=== PATIENT | male | born 1940 | race Caucasian/White ===

== ENCOUNTER 2017-07-04 00:43 | Inpatient (IN) | payer MEDICARE, BC ==
[~2017-07-04] VITALS: Ht 193 cm; Wt 72.6 kg
[2017-07-04] MEDS ORDERED: DOCU-141 PO (00:56)
--- NOTE | 2017-07-04 00:58 | NUR ---
MEDICALLY CLEARED BY DR CRUM
[2017-07-04] MEDS ORDERED: MULT-1119 PO (01:00)
[2017-07-04] MEDS ORDERED: ASPI-605 PO (01:00)
[2017-07-04] MEDS ORDERED: BUPR150T5 PO (01:00)
[2017-07-04] MEDS ORDERED: DONE10TA11 PO (01:00)
[2017-07-04] MEDS ORDERED: UBID200C32 PO (01:00)
--- NOTE | 2017-07-04 01:12 | NUR ---
TRANSFERED TO [facility] [place] VIA [facility]
--- NOTE | 2017-07-04 01:54 | NUR ---
GPS: PATIENT UNABLE TO SLEEP.RESTORIL 7.5 MG PO GIVEN.
--- NOTE | 2017-07-04 02:00 | NUR ---
RECEIVED TO CARE, ON A 72 HOUR HOLD FOR [facility]VELY DISABLED FROM , IN [place]. ACCORDIN REVAO THE CHART, HE WAS ADMITTED THERE FROM HOME, JAVIR EDER HAD BEEN NON COMPLIANT WITH FAMILY AND CAREGIVERS. AT THE HOSPITAL, HE WAS ATTEMPTING TO [place], AND REFUSING MEDICAL TREATMENT. UPON ARRIVAL, HE WAS CONFUSED AND DISORGANIZED. UNSTEADY GAIT. UNABLE TO PROVIDE HISTORY DUE TO CONFUSION. PRN RESTORIL WAS GIVEN AT 0153. OF 0200, HE REMAINS UP IN [employer] CHAIR, ATTEMPTING TO GET UP WITHOUT ASSISTANCE. ASSISTED NEEDED. WILL CONTINUE TO MONITOR CLOSELY.
--- NOTE | 2017-07-04 02:35 | NUR ---
GPS: PATIENT VERY AGITATED.GETTING OUT OF BED. STATED I WANT GO HOME. ATIVAN 0.5 MG PO GIVEN FOR AGITATION.
--- NOTE | 2017-07-04 02:40 | NUR ---
GPS: PATIENT C/O GEN: PAIN. TYLENOL 650 MG PO GIVEN.
--- NOTE | 2017-07-04 02:54 | NUR ---
GPS: RESTORIL 7.5 MG FOR SLEEP NOT EFFECTIVE.
--- NOTE | 2017-07-04 03:35 | NUR ---
GPS: PATIENT IS CALM NOW. PRN FOR AGITATION EFFECTIVE.
--- NOTE | 2017-07-04 03:40 | NUR ---
GPS: PATIENT STATED I AM FEELING BETTER NOW. PRN EFFECTIVE FOR PAIN.
--- NOTE | 2017-07-04 06:25 | NUR ---
GPS: REMAIN CALM AFTER ATIVAN PO GIVEN. KEPT IN GIOVANY CHAIR NEAR NURSING STATION FOR SAFETY.SLEPT 45 MINUTE ONLY.RESTORIL 7.5 MG PO GIVEN NOT EFFECTIVE.ASSISTED WITH ADL'S.CONTINUE PLAN OF CARE.
[2017-07-04 07:30] VITALS: BP 127/77
--- NOTE | 2017-07-04 12:45 | NUR ---
Initial discharge instructions: Pt resides at home with his family [[id number] [place] [address];[phone] (cell)].Pt was unresponsive when asked about discharge plans.SW attempted to contact Cici (Daughter) and Tristen () but no answer at this time. SW will speak with pt,family,and MD regarding appropriate discharge plans.SW will form a safe and proper discharge.
[2017-07-04 16:00] VITALS: BP 127/89
--- NOTE | 2017-07-04 20:00 | NUR ---
nsg: pt has a fever of 101.3F, family with patient. they want patient to be transferred to [facility] ER. notified Dr. Khan, see md order. notified md regarding ama option. per Dr. Khan to call psychiatrist since pt is on 72hr hold.
--- NOTE | 2017-07-04 20:15 | NUR ---
nsg: family refused all stat labs and cxr.
--- NOTE | 2017-07-04 20:33 | NUR ---
nsg: spoke with Dr. Maurice regarding pt family wants to go [facility]a. received order for d/c 72hr hold. belongings with daughter and .
--- NOTE | 2017-07-04 21:00 | NUR ---
NSG: PT LEFT AMA WITH FAMILY. SEE MD ORDER. DR. BUSTOS, DR. AMBRIZ, DR. FORMAN, AND [employer] VIEWER AWARE OF AMA.
== END 2017-07-04 21:00 | disposition left against medical advice (07) | DRG 885 ==
LOC: ER 00:50 → GPS 01:02
PROVIDERS: ADMIT Psychiatry & Neurology Psychosomatic Medicine; ATTEND Internal Medicine
DX: F29 Unspecified psychosis not due to a substance or known physiological condition (principal); F02.81 Dementia in other diseases classified elsewhere, unspecified severity, with behavioral disturbance; G30.9 Alzheimer's disease, unspecified; J44.9 Chronic obstructive pulmonary disease, unspecified; D72.829 Elevated white blood cell count, unspecified; E78.5 Hyperlipidemia, unspecified; F17.210 Nicotine dependence, cigarettes, uncomplicated; K29.70 Gastritis, unspecified, without bleeding; Z88.0 Allergy status to penicillin
CPT/HCPCS: 92523; A4663